=== PATIENT | female | born 2000 | race African-American/Black ===

== ENCOUNTER 2022-03-10 14:21 | Emergency (ER) | payer OTHER ==
[2022-03-10 15:18] LABS: Bilirubin Neg (Negative); Blood, Urine Negative (Negative); Clarity Clear (Clear); Glucose, Urine (Dipstick) Normal (Negative); Ketone, Urine Negative (Negative); Leukocyte 100 (Negative); Nitrite Negative (Negative); Protein, Urine (Dipstick) Negative (Neg-Trace); Specific Gravity, Urine 1.005 (1.002-1.036)
[2022-03-10 15:21] LABS: Pregu Control Background? CLEAR/WHITE (CLR/WHITE); Pregu Control Bar Appear? YES (CONTROL BAR); Specific Gravity 1.005 (1.002-1.036)
[2022-03-10 15:22] LABS: Pregnancy Test - Urine (BHCG) POSITIVE (Negative)
[2022-03-10 15:27] LABS: Bacteria/HPF Rare-Few HPF (None Seen); RBC/HPF 0-3 HPF (0-3); Squamous Epithelial 0-3 HPF (0-3)
[2022-03-10] MEDS ORDERED: Dicyclomine 20 MG/2 ML VIAL ONE (15:35)
[2022-03-10] MEDS ORDERED: Ondansetron ODT 4 MG TAB ONE (15:35)
== END 2022-03-10 15:48 | disposition home or self-care (01) ==
LOC: CSHERS 14:21
DX: O98.511 Other viral diseases complicating pregnancy, first trimester (principal); A08.4 Viral intestinal infection, unspecified; Z3A.01 Less than 8 weeks gestation of pregnancy
CPT/HCPCS: 81003; 81015; 81025; 96372; 99284; J0500; Q0162

== ENCOUNTER 2022-03-15 08:52 | Emergency (ER) | payer OTHER ==
[2022-03-15 09:31] LABS: #Eosinphils 0.2 10x3/uL (0.0-0.5); #Monocytes 0.3 10x3/uL (0.0-1.1); #Neutrophils 3.5 10x3/uL (1.5-8.4); %Basophils 0.5 % (0.0-2.0); %Eosinophils 2.6 % (0.0-6.0); %Neutrophils 54.6 % (40.0-75.0); Hemoglobin 11.9 g/dL (12.0-15.5); Mean Corpuscular HGB CONC 35.4 g/dL (32.0-36.0); Mean Corpuscular Hemoglobin 27.2 pg (27.0-33.0); Mean Corpuscular Volume 76.9 fl (81.6-98.3); Mean Platelet Volume 11.2 fl (7.4-10.4); Platelet Count 212 10x3/uL (150-450); Red Blood Cell (RBC) Count 4.37 10x6/uL (3.90-5.03); White Blood Cell (WBC) Count 6.5 10x3/uL (3.5-10.5)
[2022-03-15 10:42] LABS: Bilirubin Neg (Negative); Blood, Urine 250 (Negative); Clarity Slightly Cloudy (Clear); Glucose, Urine (Dipstick) Normal (Negative); Ketone, Urine Negative (Negative); Leukocyte 100 (Negative); Nitrite Negative (Negative); Protein, Urine (Dipstick) Negative (Neg-Trace); Specific Gravity, Urine 1.005 (1.002-1.036); Urobilinogen Normal mg/dL (Less than 2)
[2022-03-15 10:58] LABS: RBC/HPF 21-50 HPF (0-3); Squamous Epithelial 0-3 HPF (0-3); WBC/HPF 0-3 HPF (0-3)
[2022-03-15 10:59] LABS: Bacteria/HPF Rare-Few HPF (None Seen); Trichomonas/HPF Rare HPF (None Seen)
== END 2022-03-15 10:59 | disposition home or self-care (01) ==
LOC: CSHERS 08:52
DX: O03.9 Complete or unspecified spontaneous abortion without complication (principal); Z3A.01 Less than 8 weeks gestation of pregnancy
CPT/HCPCS: 36415; 76856; 81003; 81015; 84702; 85025; 86900; 86901

== ENCOUNTER 2022-04-21 07:34 | Emergency (ER) | payer OTHER ==
[2022-04-21 08:37] LABS: ALT (SGPT) 6 U/L (8-55); AST (SGOT) 13 U/L (5-34); Albumin 3.8 g/dL (3.5-5.0); Alkaline Phosphatase 56 U/L (40-100); Anion Gap 13 mmol/L (10-20); BUN (Urea Nitrogen) 11 mg/dL (7.0-18.7); Bilirubin, Total 0.3 mg/dL (0.2-1.2); Calc. Creatinine Clearance 0 mL/min (70-130); Calcium 9.4 mg/dL (7.8-10.44); Carbon Dioxide 22 mmol/L (22-29); Chloride 109 mmol/L (98-107); Globulin 2.7 g/dL (2.4-3.5); Glucose 93 mg/dL (70-105); Lipase 21 U/L (8-78); Potassium 3.7 mmol/L (3.5-5.1); Protein, Total 6.5 g/dL (6.0-8.3); Sodium 140 mmol/L (136-145)
[2022-04-21 08:40] LABS: #Eosinphils 0.2 10x3/uL (0.0-0.5); #Monocytes 0.5 10x3/uL (0.0-1.1); #Neutrophils 3.6 10x3/uL (1.5-8.4); %Basophils 0.3 % (0.0-2.0); %Eosinophils 2.2 % (0.0-6.0); %Lymphocytes 37.8 % (18.0-47.0); %Monocytes 6.7 % (0.0-10.0); %Neutrophils 52.9 % (40.0-75.0); Mean Corpuscular Hemoglobin 27.8 pg (27.0-33.0); Platelet Count 163 10x3/uL (150-450); RBC Distribution Width 13.8 % (11.5-14.5); Red Blood Cell (RBC) Count 4.32 10x6/uL (3.90-5.03); White Blood Cell (WBC) Count 6.9 10x3/uL (3.5-10.5)
[2022-04-21 08:46] LABS: Bilirubin Neg (Negative); Blood, Urine 25 (Negative); Clarity Slightly Cloudy (Clear); Glucose, Urine (Dipstick) Normal (Negative); Ketone, Urine Negative (Negative); Leukocyte 500 (Negative); Nitrite Negative (Negative); Protein, Urine (Dipstick) Negative (Neg-Trace); Urobilinogen Normal mg/dL (Less than 2)
[2022-04-21 09:10] LABS: Bacteria/HPF 1+ HPF (None Seen); RBC/HPF 0-3 HPF (0-3); Squamous Epithelial 0-3 HPF (0-3)
== END 2022-04-21 09:06 | disposition home or self-care (01) ==
LOC: CSHERS 07:34
DX: R10.10 Upper abdominal pain, unspecified (principal)
CPT/HCPCS: 80053; 81003; 81015; 83690; 84702; 99284

== ENCOUNTER 2022-05-02 19:06 | Emergency (ER) | payer OTHER ==
[2022-05-02 20:44] LABS: Bilirubin Neg (Negative); Blood, Urine 50 (Negative); Clarity Slightly Cloudy (Clear); Glucose, Urine (Dipstick) Normal (Negative); Ketone, Urine Negative (Negative); Leukocyte 500 (Negative); Nitrite Negative (Negative); Protein, Urine (Dipstick) Negative (Neg-Trace); Specific Gravity, Urine 1.015 (1.002-1.036); Urobilinogen Normal mg/dL (Less than 2)
[2022-05-02 20:46] LABS: Pregnancy Test - Urine (BHCG) Negative (Negative); Pregu Control Background? CLEAR/WHITE (CLR/WHITE); Pregu Control Bar Appear? YES (CONTROL BAR); Specific Gravity 1.015 (1.002-1.036)
[2022-05-02 20:52] LABS: Bacteria/HPF Rare-Few HPF (None Seen); Squamous Epithelial 0-3 HPF (0-3); Trichomonas/HPF 2+ HPF (None Seen)
[2022-05-02 20:53] LABS: Mucous/LPF 1+ LPF (<2+)
[2022-05-04 13:09] LABS: Chlam.trachomatis by PCR,Urine DETECTED (NotDetected)
== END 2022-05-02 21:40 | disposition home or self-care (01) ==
LOC: CSHERS 19:06
DX: J06.9 Acute upper respiratory infection, unspecified (principal); A59.9 Trichomoniasis, unspecified
CPT/HCPCS: 81003; 81015; 81025; 87491; 87591; 99283

== ENCOUNTER 2022-07-20 18:48 | Emergency (ER) | payer OTHER | END 2022-07-20 21:17 | disposition home or self-care (01) | LOC: CSHERS 18:48 | DX: J06.9 Acute upper respiratory infection, unspecified (principal) | CPT/HCPCS: 99283 ==

== ENCOUNTER 2022-08-30 18:32 | Emergency (ER) | payer OTHER | END 2022-08-30 19:43 | disposition home or self-care (01) | LOC: CSHERS 18:32 | DX: R55 Syncope and collapse (principal) | CPT/HCPCS: 36416; 99284 ==

== ENCOUNTER 2022-09-09 18:42 | Emergency (ER) | payer OTHER ==
[2022-09-09 19:54] LABS: #Eosinphils 0.2 10x3/uL (0.0-0.5); #Monocytes 0.5 10x3/uL (0.0-1.1); #Neutrophils 4.5 10x3/uL (1.5-8.4); %Basophils 0.4 % (0.0-2.0); %Eosinophils 1.8 % (0.0-6.0); %Lymphocytes 37.7 % (18.0-47.0); %Monocytes 6.1 % (0.0-10.0); %Neutrophils 53.9 % (40.0-75.0); Hemoglobin 12.3 g/dL (12.0-15.5); Mean Corpuscular Hemoglobin 27.2 pg (27.0-33.0); Mean Corpuscular Volume 75.5 fl (81.6-98.3); Mean Platelet Volume 10.8 fl (7.4-10.4); Platelet Count 202 10x3/uL (150-450); RBC Distribution Width 13.4 % (11.5-14.5); Red Blood Cell (RBC) Count 4.53 10x6/uL (3.90-5.03); White Blood Cell (WBC) Count 8.4 10x3/uL (3.5-10.5)
[2022-09-09 20:02] LABS: BHCG - Serum Negative (NEGATIVE); Pregs Control Background? CLEAR/WHITE (CLR/WHITE); Pregs Control Bar Appear? YES (CONTROL BAR)
[2022-09-09 20:08] LABS: ALT (SGPT) Less than 6 U/L (8-55); AST (SGOT) 14 U/L (5-34); Albumin 4.3 g/dL (3.5-5.0); Alkaline Phosphatase 68 U/L (40-110); Anion Gap 13 mmol/L (10-20); BUN (Urea Nitrogen) 13 mg/dL (7.0-18.7); Bilirubin, Total 0.2 mg/dL (0.2-1.2); Calc. Creatinine Clearance 0 mL/min (70-130); Calcium 9.9 mg/dL (7.8-10.44); Carbon Dioxide 22 mmol/L (22-29); Chloride 108 mmol/L (98-107); Estimated GFR 103; Globulin 3.5 g/dL (2.4-3.5); Glucose 97 mg/dL (70-105); Potassium 3.7 mmol/L (3.5-5.1); Protein, Total 7.8 g/dL (6.0-8.3); Sodium 139 mmol/L (136-145)
== END 2022-09-09 21:00 | disposition home or self-care (01) ==
LOC: CSHERS 18:42
DX: R55 Syncope and collapse (principal); R11.0 Nausea
CPT/HCPCS: 36415; 80053; 84443; 84703; 85025; 99284

== ENCOUNTER 2023-07-26 18:05 | Emergency (ER) | payer OTHER, SELFPAY ==
[2023-07-26] MEDS ORDERED: Ibuprofen 200 MG TAB ONE (19:36)
[2023-07-26] MEDS ORDERED: Fioricet 325/50/40 mg Tablet PO SCH (19:45)
== END 2023-07-26 19:56 | disposition home or self-care (01) ==
LOC: CSHERS 18:05
DX: G43.909 Migraine, unspecified, not intractable, without status migrainosus (principal)
CPT/HCPCS: 36416; 99284

== ENCOUNTER 2023-10-08 09:13 | Emergency (ER) | payer SELFPAY ==
[2023-10-08 09:58] LABS: Bilirubin Neg (Negative); Blood, Urine Negative (Negative); Clarity Clear (Clear); Glucose, Urine (Dipstick) Normal (Negative); Ketone, Urine Negative (Negative); Leukocyte 500 (Negative); Nitrite Negative (Negative); Protein, Urine (Dipstick) Negative (Neg-Trace); Urobilinogen Normal mg/dL (Less than 2)
[2023-10-08 10:02] LABS: Pregnancy Test - Urine (BHCG) Negative (Negative); Pregu Control Background? CLEAR/WHITE (CLR/WHITE); Pregu Control Bar Appear? YES (CONTROL BAR)
[2023-10-08 10:18] LABS: CAUTI Indications for Culture Pelvic or flank pain; RBC/HPF 0-3 HPF (0-3)
[2023-10-08 10:19] LABS: Bacteria/HPF 2+ HPF (None Seen); Transitional Epithelial 0-3 HPF (None Seen); Trichomonas/HPF 1+ HPF (None Seen)
[2023-10-08 10:21] LABS: Urine Culture Reflex No No
[2023-10-08 10:50] LABS: SARS-CoV-2 NAA Rapid Test Not Detected (NotDetected)
== END 2023-10-08 11:00 | disposition home or self-care (01) ==
LOC: CSHERS 09:13
DX: N39.0 Urinary tract infection, site not specified (principal); Z20.822 Contact with and (suspected) exposure to COVID-19
CPT/HCPCS: 71045; 81001; 81025